=== PATIENT | female | born 1965 | race Caucasian/White ===

== ENCOUNTER 2016-09-08 11:47 | Emergency (ER) | payer MEDICAID ==
[~2016-09-08] VITALS: Ht 162.6 cm; Wt 85.3 kg
[2016-09-08 12:11] VITALS: BP 120/75
[2016-09-08] MEDS ORDERED: DIAZEPAM 5 MG TABLET PO ONE (12:30)
[2016-09-08] MEDS ORDERED: KETOROLAC 30 MG/1 ML IM ONE (12:30)
[2016-09-08] MEDS ORDERED: KETOROLAC 30 MG/1 ML ONE (12:37)
[2016-09-08] MEDS ORDERED: DIAZEPAM 5 MG TABLET ONE (12:37)
== END 2016-09-08 13:35 | disposition home or self-care (01) ==
LOC: ED 13:19
DX: S39.012A Strain of muscle, fascia and tendon of lower back, initial encounter (principal); X30.XXXA Exposure to excessive natural heat, initial encounter; Y93.89 Activity, other specified; Y92.89 Other specified places as the place of occurrence of the external cause; Y99.8 Other external cause status; Z88.0 Allergy status to penicillin; Z88.1 Allergy status to other antibiotic agents; Z88.8 Allergy status to other drugs, medicaments and biological substances
CPT/HCPCS: 72110; 96372; 99284; J1885

== ENCOUNTER 2017-01-24 14:35 | Emergency (ER) | payer MEDICAID ==
[~2017-01-24] VITALS: Ht 165.1 cm; Wt 83.6 kg
[2017-01-24 14:37] VITALS: BP 128/86
== END 2017-01-24 16:06 | disposition home or self-care (01) ==
LOC: ED 16:00
DX: J20.8 Acute bronchitis due to other specified organisms (principal); R05 Cough; F17.210 Nicotine dependence, cigarettes, uncomplicated
CPT/HCPCS: 71020; 99284

== ENCOUNTER 2017-02-16 18:40 | Emergency (ER) | payer MEDICAID ==
[~2017-02-16] VITALS: Ht 165.1 cm; Wt 83.6 kg
[2017-02-16] MEDS ORDERED: DIAZEPAM 5 MG TABLET PO ONE (19:00)
[2017-02-16] MEDS ORDERED: HYDROcodone/APAP 5/325 TABLET PO ONE (19:00)
[2017-02-16] MEDS ORDERED: KETOROLAC 30 MG/1 ML IM ONE (19:00)
[2017-02-16] MEDS ORDERED: DIAZEPAM 5 MG TABLET ONE (19:11)
[2017-02-16] MEDS ORDERED: KETOROLAC 30 MG/1 ML ONE (19:11)
[2017-02-16 20:44] VITALS: BP 155/88
== END 2017-02-16 20:45 | disposition home or self-care (01) ==
LOC: ED 20:39
DX: M54.42 Lumbago with sciatica, left side (principal); E78.5 Hyperlipidemia, unspecified; Z98.51 Tubal ligation status
CPT/HCPCS: 72110; 96372; 99284; J1885; J7512

== ENCOUNTER 2019-05-23 13:49 | Emergency (ER) | payer MEDICAID ==
[~2019-05-23] VITALS: Ht 162.6 cm; Wt 88.9 kg
[2019-05-23] MEDS ORDERED: DIAZEPAM 5 MG TABLET ONE ×2 (14:28→15:33)
[2019-05-23] MEDS ORDERED: HYDROcodone/APAP 5/325 TABLET ONE (14:29)
[2019-05-23] MEDS ORDERED: KETOROLAC 30 MG/1 ML ONE (14:29)
[2019-05-23] MEDS ORDERED: DIAZEPAM 5 MG TABLET PO ONE ×2 (14:30→15:30)
[2019-05-23] MEDS ORDERED: KETOROLAC 30 MG/1 ML IM ONE (14:30)
[2019-05-23] MEDS ORDERED: HYDROcodone/APAP 5/325 TABLET PO ONE (14:30)
--- NOTE | 2019-05-23 14:39 | NUR ---
meds per mar pt to xr. as
--- NOTE | 2019-05-23 15:25 | NUR ---
xr wnl. pa in to reassess. as
[2019-05-23] MEDS ORDERED: HYDROmorphone 1 MG/ML, 1ML INJ IM ONE (15:30)
[2019-05-23] MEDS ORDERED: HYDROmorphone 1 MG/ML, 1ML INJ ONE (15:34)
[2019-05-23] MEDS ORDERED: ONDANSETRON ODT 4 MG ONE (16:46)
[2019-05-23 16:51] VITALS: BP 126/77
--- NOTE | 2019-05-23 16:52 | NUR ---
c/o nausea, zofran odt. pale, diaphoretic. helped to stretcher. vitals as noted. pt resting on stretcher, side rails up. provider notified. as
[2019-05-23] MEDS ORDERED: ONDANSETRON ODT 4 MG PO ONE (17:00)
--- NOTE | 2019-05-23 17:32 | NUR ---
86% ON RA. PT STS FEELS NAUSEOUS, WANTS TO STAY LONGER. PA NOTIFIED.
--- NOTE | 2019-05-23 18:08 | NUR ---
TASK RN: Patient/Caregiver given discharge instructions and they have confirmed that they understand the instructions. Patient ambulatory with steady gait TO WHEELCHAIR. PT LEFT WITH ALL PERSONAL BELONGINGS.
== END 2019-05-23 16:41 | disposition home or self-care (01) ==
LOC: ED 16:35
DX: S39.012A Strain of muscle, fascia and tendon of lower back, initial encounter (principal); M54.42 Lumbago with sciatica, left side; E78.5 Hyperlipidemia, unspecified; F17.200 Nicotine dependence, unspecified, uncomplicated; X58.XXXA Exposure to other specified factors, initial encounter; Y93.89 Activity, other specified; Y92.89 Other specified places as the place of occurrence of the external cause; Y99.8 Other external cause status
CPT/HCPCS: 72110; 96372; 99284; J1170; J1885; J7512; Q0162

== ENCOUNTER 2020-09-18 17:56 | Emergency (ER) | payer MEDICAID ==
[~2020-09-18] VITALS: Ht 162.6 cm; Wt 110.2 kg
[2020-09-18 19:07] LABS: BASOPHILS % (AUTO) 1 % (0-1); EOSINOPHILS % (AUTO) 2 % (1-7); LYMPHOCYTES % (AUTO) 33 % (22-44); MEAN CORPUSCULAR HEMOGLOBIN 30.8 pg (27.0-34.8); MEAN CORPUSCULAR HGB CONC 33.6 g/dL (32.4-35.8); MEAN PLATELET VOLUME 8.2 fL (7.4-10.4); MONOCYTES % (AUTO) 6 % (2-9); NEUTROPHILS % (AUTO) 58 % (42-75); PLATELET COUNT 296 x10^3/uL (130-400); RED BLOOD COUNT 4.57 x10^6/uL (3.82-5.3); RED CELL DISTRIBUTION WIDTH 15.2 % (9.6-15.2)
[2020-09-18 19:08] LABS: MD NO
[2020-09-18 19:16] LABS: ALANINE AMINOTRANSFERASE 51 U/L (12-78); ALBUMIN 3.8 g/dL (3.4-5.0); ANION GAP 5 mmol/L (5-15); CALCIUM 9.9 mg/dL (8.5-10.1); CHLORIDE 110 mmol/L (98-107); CREATININE 1.08 mg/dL (0.55-1.02)
[2020-09-18 19:18] LABS: ALKALINE PHOSPHATASE 76 U/L (45-117); BILIRUBIN,TOTAL 0.2 mg/dL (0.2-1.0); TOTAL PROTEIN 7.2 g/dL (6.4-8.2)
[2020-09-18 20:44] LABS: MICROSCOPIC AUTO
[2020-09-18] MEDS ORDERED: ONDANSETRON ODT 4 MG ONE (23:15)
[2020-09-18] MEDS ORDERED: HYDROmorphone 1 MG/ML, 1ML INJ ONE (23:15)
[2020-09-18] MEDS ORDERED: ONDANSETRON ODT 4 MG PO ONE (23:30)
[2020-09-18] MEDS ORDERED: HYDROmorphone 1 MG/ML, 1ML INJ IM ONE (23:30)
[2020-09-19] MEDS ORDERED: HYDROmorphone 1 MG/ML, 1ML INJ ONE (00:18)
[2020-09-19] MEDS ORDERED: HYDROmorphone 1 MG/ML, 1ML INJ IM ONE (00:30)
[2020-09-19 01:03] VITALS: BP 135/82
== END 2020-09-19 01:05 | disposition home or self-care (01) ==
LOC: ED 18:32
DX: R10.13 Epigastric pain (principal); R10.11 Right upper quadrant pain; M25.552 Pain in left hip; M25.551 Pain in right hip; G43.909 Migraine, unspecified, not intractable, without status migrainosus; F17.210 Nicotine dependence, cigarettes, uncomplicated; Z88.0 Allergy status to penicillin; Z88.5 Allergy status to narcotic agent; Z88.6 Allergy status to analgesic agent; Z88.8 Allergy status to other drugs, medicaments and biological substances; E78.5 Hyperlipidemia, unspecified; Z86.39 Personal history of other endocrine, nutritional and metabolic disease
CPT/HCPCS: 36415; 72110; 74176; 80053; 81001; 83690; 85025; 87086; 87147; 96372; 99285; J1170; J7512; Q0162

== ENCOUNTER 2020-10-20 07:52 | Emergency (ER) | payer MEDICAID ==
[~2020-10-20] VITALS: Ht 165.1 cm; Wt 105.1 kg
[2020-10-20] MEDS ORDERED: NITROGLYCERIN SINGLE TAB 0.4 MG SL PRN (08:30)
[2020-10-20 08:56] LABS: BASOPHILS % (AUTO) 1 % (0-1); EOSINOPHILS % (AUTO) 4 % (1-7); LYMPHOCYTES % (AUTO) 46 % (22-44); MEAN CORPUSCULAR HEMOGLOBIN 31.1 pg (27.0-34.8); MEAN CORPUSCULAR HGB CONC 34.5 g/dL (32.4-35.8); MEAN PLATELET VOLUME 8.7 fL (7.4-10.4); MONOCYTES % (AUTO) 9 % (2-9); NEUTROPHILS % (AUTO) 39 % (42-75); PLATELET COUNT 269 x10^3/uL (130-400); RED BLOOD COUNT 4.59 x10^6/uL (3.82-5.3)
[2020-10-20] MEDS ORDERED: ONDANSETRON 2MG/ML, 2ML IVPush ONE (09:00)
[2020-10-20] MEDS ORDERED: SODIUM CHLORIDE 0.9% 1,000ML IVBOLUS ONE (09:00)
[2020-10-20] MEDS ORDERED: ASPIRIN 81 MG TABLET CHEW PO ONE (09:00)
[2020-10-20 09:03] LABS: ALANINE AMINOTRANSFERASE 99 U/L (12-78); ALBUMIN 3.5 g/dL (3.4-5.0); ANION GAP 6 mmol/L (5-15); CALCIUM 9.7 mg/dL (8.5-10.1); CHLORIDE 112 mmol/L (98-107); CREATININE 0.63 mg/dL (0.55-1.02)
[2020-10-20 09:07] LABS: ALKALINE PHOSPHATASE 77 U/L (45-117); BILIRUBIN,TOTAL 0.2 mg/dL (0.2-1.0); TOTAL PROTEIN 7.4 g/dL (6.4-8.2); TROPONIN I < 0.015 ng/mL (0.000-0.045)
[2020-10-20] MEDS ORDERED: SODIUM CHLORIDE FLUSH 10ML SYR IVF ONE (09:30)
--- NOTE | 2020-10-20 09:43 | NUR ---
PT NOW ASSIGNED TO THIS RN
[2020-10-20] MEDS ORDERED: ONDANSETRON 2MG/ML, 2ML ONE (09:47)
[2020-10-20] MEDS ORDERED: NITROGLYCERIN SINGLE TAB 0.4 MG SL ONE (09:47)
--- NOTE | 2020-10-20 09:49 | NUR ---
CALLED PHARMACY FOR ASPIRIN 81MG CHEWABLE (NON-IN DEPARTMENT)
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
[2020-10-20] MEDS ORDERED: MELO15TA24 PO (10:16)
[2020-10-20] MEDS ORDERED: LISI10TA19 PO (10:16)
[2020-10-20] MEDS ORDERED: SIMV20TA19 PO (10:16)
[2020-10-20] MEDS ORDERED: LEVO150T5 PO (10:16)
[2020-10-20] MEDS ORDERED: ASPIRIN 81 MG TABLET CHEW ONE (10:18)
--- NOTE | 2020-10-20 10:20 | NUR ---
PT REPORTS SOME RELIEF FROM CP
--- NOTE | 2020-10-20 11:03 | NUR ---
TO RADIOLOGY PER ANATOLIY
[2020-10-20 12:51] VITALS: BP 129/83
== END 2020-10-20 13:01 | disposition home or self-care (01) ==
LOC: ED 08:44
DX: R07.89 Other chest pain (principal); R11.2 Nausea with vomiting, unspecified; R94.31 Abnormal electrocardiogram [ECG] [EKG]; I10 Essential (primary) hypertension; E78.5 Hyperlipidemia, unspecified; F17.200 Nicotine dependence, unspecified, uncomplicated; Z86.39 Personal history of other endocrine, nutritional and metabolic disease
CPT/HCPCS: 36415; 71045; 78582; 80053; 84484; 85025; 85379; 93005; 96361; 96374; 99285; A9540; A9558; J2405; J7030